=== PATIENT | female | born 1970 | race Caucasian/White ===

== ENCOUNTER 2023-02-03 01:14 | Emergency (ER) | payer OTHER, MEDICAID ==
[~2023-02-03] VITALS: Ht 162.6 cm; Wt 65.0 kg
[2023-02-03 01:24] VITALS: BP 164/95; PULSE 70; RESP 16; TEMP 98.4; O2SAT 98
[2023-02-03] MEDS ORDERED: ASPIRIN 81MG TABLET PO ONE (04:15)
[2023-02-03] MEDS ORDERED: NITROGLYCERIN 0.4MG TABLET SL SL PRN (04:15)
[2023-02-03 04:38] LABS: HEMATOCRIT. 30.7 % (36.0-48.0); HEMOGLOBIN. 9.7 g/dL (12.0-16.0); MEAN CORPUSCULAR HEMOGLOBIN 25.2 pg (28.0-32.0); MEAN CORPUSCULAR HGB CONC 31.5 g/dL (31.0-37.0); MEAN CORPUSCULAR VOLUME 79.8 fL (81.0-99.0); MEAN PLATELET VOLUME 6.9 fl (7.4-10.4); PLATELET 535 x1000/uL (130-400); RED BLOOD CELL COUNT 3.85 mill/uL (4.2-5.4); RED CELL DISTRIBUTION WIDTH 15.9 % (11.6-14.6); WHITE BLOOD COUNT 14.6 x1000/uL (4.5-11.0)
[2023-02-03 04:46] LABS: CHLORIDE 106 mEq/L (98-107); INDEX HEMOLYSI 1 (1-3); INDEX ICTERIC 1 (1-4); INDEX LIPEMIC 1 (1-3); POTASSIUM 4.1 mEq/L (3.5-5.1); SODIUM 138 mEq/L (136-145)
[2023-02-03 04:57] LABS: ALANINE AMINOTRANSFERASE 64 IU/L (13-61); ASPARTATE AMINOTRANSFERASE 45 IU/L (15-37); BILIRUBIN TOTAL 0.4 mg/dL (0.1-1.0); CALCIUM 8.5 mg/dL (8.5-10.1); CARBON DIOXIDE 29 mEq/L (21-32); CREATININE 0.6 mg/dL (0.6-1.3); GLUCOSE 94 mg/dL (70-105); NT PRO B-TYPE NATRIURETIC PEP 7243 pg/mL (5-125); PROTEIN TOTAL 6.9 g/dL (6.0-8.3); UREA NITROGEN BLOOD 22 mg/dL (7-21)
[2023-02-03 05:11] LABS: TROPONIN I HIGH SENSITIVITY 59 ng/L (<54)
[2023-02-03] MEDS ORDERED: SODIUM CHLORIDE 0.9% 1000ML BAG (SEPSIS BOLUS) IV ONE (05:15)
[2023-02-03] MEDS ORDERED: CEFTRIAXONE 1GM PREMIX 50 ML IV ONE (05:15)
[2023-02-03] MEDS ORDERED: AZITHROMYCIN 500MG/250ML 250 ML IV ONE (05:15)
[2023-02-03 05:38] LABS: DIFFERENTIAL COMMENT 1
[2023-02-03 06:51] LABS: TROPONIN I HIGH SENSITIVITY 53 ng/L (<54)
[2023-02-03 07:49] LABS: CLARITY URINE TURBID (CLEAR); COLOR URINE YELLOW (YELLOW); GLUCOSE URINE NEGATIVE (NEGATIVE); KETONES URINE NEGATIVE (NEGATIVE); LEUKOCYTE ESTERASE URINE NEGATIVE (NEGATIVE); NITRITE URINE NEGATIVE (NEGATIVE); OCCULT BLOOD URINE NEGATIVE (NEGATIVE); PH URINE 8.5 (4.5-8.0); PROTEIN URINE TRACE (NEGATIVE); SPECIFIC GRAVITY URINE 1.016 (1.005-1.030)
[2023-02-03 08:37] LABS: AMORPHOUS SEDIMENT URINE 2+ /lpf
[2023-02-03 08:38] LABS: BACTERIA URINE 2+; SQUAMOUS EPITHELIAL CELL URINE NONE SEEN /lpf (RARE/1+)
[2023-02-03 08:39] LABS: RBC URINE NONE SEEN /hpf (0-2); WBC URINE 0-2 /hpf (0-2)
[2023-02-03 08:44] LABS: PLATELET ESTIMATE INCREASED
== END 2023-02-03 07:03 | disposition left against medical advice (07) ==
LOC: ER 01:14 → EDBEDREQ 05:38 → ER 07:03
DX: R07.89 Other chest pain (principal); F12.10 Cannabis abuse, uncomplicated; Z20.822 Contact with and (suspected) exposure to COVID-19
CPT/HCPCS: 99285; 71045; 87426; 80053; 81003; 83880; 83605; 85025; 87040; 87086; 84484; 36415; 93005; J7030; C9803

== ENCOUNTER 2023-05-13 17:39 | Inpatient (IN) | payer OTHER, MEDICAID ==
[~2023-05-13] VITALS: Ht 157.5 cm; Wt 58.5 kg
[2023-05-13 18:00] VITALS: O2SAT 98
[2023-05-13] MEDS ORDERED: KETOROLAC 30MG/ML VIAL IV STA (18:37)
[2023-05-13 20:04] LABS: BASOPHILS % 0.8 % (0.0-2.0); DIFFERENTIAL COMMENT 0; EOSINOPHILS % 0.3 % (0.0-5.0); HEMATOCRIT. 34.3 % (36.0-48.0); HEMOGLOBIN. 10.5 g/dL (12.0-16.0); LYMPHOCYTES % 12.2 % (20.0-50.0); MEAN CORPUSCULAR HEMOGLOBIN 22.3 pg (28.0-32.0); MEAN CORPUSCULAR HGB CONC 30.6 g/dL (31.0-37.0); MEAN CORPUSCULAR VOLUME 72.7 fL (81.0-99.0); MEAN PLATELET VOLUME 7.7 fl (7.4-10.4); MONOCYTES % 8.7 % (2.0-8.0); PLATELET 367 x1000/uL (130-400); RED BLOOD CELL COUNT 4.72 mill/uL (4.2-5.4); RED CELL DISTRIBUTION WIDTH 20.9 % (11.6-14.6); WHITE BLOOD COUNT 11.7 x1000/uL (4.5-11.0)
[2023-05-13 20:16] LABS: HCG SCREEN NEGATIVE; INR 1.4; PROTHROMBIN TIME 15.3 sec (9.6-11.0)
[2023-05-13 20:18] LABS: ALANINE AMINOTRANSFERASE 89 IU/L (10-49); ALBUMIN 3.8 g/dL (3.2-4.8); ASPARTATE AMINOTRANSFERASE 71 IU/L (<34); CALCIUM 8.7 mg/dL (8.7-10.4); CARBON DIOXIDE 16 mEq/L (21-32); CHLORIDE 101 mEq/L (98-107); CREATININE 1.2 mg/dL (0.6-1.0); GLUCOSE 114 mg/dL (70-105); PROTEIN TOTAL 6.7 g/dL (6.0-8.3); SODIUM 130 mEq/L (136-145); UREA NITROGEN BLOOD 34 mg/dL (9-23)
[2023-05-13 20:39] LABS: ETHANOL BLOOD < 10 mg/dL (<10); TROPONIN I HIGH SENSITIVITY 106 ng/L (3.0-34)
[2023-05-13] MEDS: SODIUM CHLORIDE 0.9% 1,000 ML IV ONE (20:55)
[2023-05-13] MEDS: KETOROLAC 30MG/ML VIAL IV NR (20:55)
[2023-05-13] MEDS: ASPIRIN 325MG EC TABLET PO ONE (23:15)
[2023-05-13] MEDS: CEFTRIAXONE 1GM PREMIX 50 ML IV ONE (23:15)
[2023-05-13] MEDS: FUROSEMIDE 20MG/2ML VIAL IVP ONE (23:15)
[2023-05-14] MEDS ORDERED: CLONIDINE 0.1MG TABLET PO PRN ×2 (04:15→11:30)
[2023-05-14 05:45] VITALS: BP 154/116; PULSE 106; RESP 18; TEMP 98.8
[2023-05-14 07:43] LABS: ALANINE AMINOTRANSFERASE 142 IU/L (10-49); ALBUMIN 4.2 g/dL (3.2-4.8); ASPARTATE AMINOTRANSFERASE 121 IU/L (<34); BILIRUBIN DIRECT 0.5 mg/dL (<=3.0); CARBON DIOXIDE 11 mEq/L (21-32); CHLORIDE 101 mEq/L (98-107); CHOLESTEROL 149 mg/dL (<200); CREATININE 1.5 mg/dL (0.6-1.0); GLUCOSE 145 mg/dL (70-105); HDL CHOLESTEROL 34 mg/dL (>65); LDL CHOLESTEROL 106 mg/dL (5-100); POTASSIUM 4.7 mEq/L (3.5-5.1); PROTEIN TOTAL 7.3 g/dL (6.0-8.3); SODIUM 130 mEq/L (136-145); TRIGLYCERIDE 85 mg/dL (0-150); UREA NITROGEN BLOOD 33 mg/dL (9-23)
[2023-05-14 07:46] LABS: TROPONIN I HIGH SENSITIVITY 139 ng/L (3.0-34)
[2023-05-14 08:00] VITALS: BP 119/79; PULSE 80; RESP 18; TEMP 98
[2023-05-14] MEDS: ASPIRIN 81MG TABLET PO SCH (09:00)
[2023-05-14] MEDS: LOSARTAN 50 MG TABLET PO SCH (09:00)
[2023-05-14] MEDS: ENOXAPARIN 40MG/0.4ML SYR SUBCUT SCH (09:00)
[2023-05-14 09:06] LABS: HEPATITIS B SURFACE ANTIGEN NEGATIVE (Negative); HEPATITIS C AB NON REACTIVE (Neg) (Negative)
[2023-05-14] MEDS: FUROSEMIDE 40MG/4ML VIAL IVP SCH ×2 (10:13→16:28)
[2023-05-14] MEDS: ONDANSETRON HCL 4MG/2ML INJ IV PRN (10:14)
[2023-05-14] MEDS: PANTOPRAZOLE SODIUM 40 MG/VIAL IV SCH (10:14)
[2023-05-14] MEDS ORDERED: ONDANSETRON HCL 4MG/2ML INJ IV PRN (11:30)
[2023-05-14] MEDS ORDERED: IPRATROPIUM/ALBUTEROL 0.5-3(2.5)MG/3ML NEB HHN PRN (11:30)
[2023-05-14] MEDS ORDERED: ACETAMINOPHEN 325MG TABLET PO PRN (11:30)
[2023-05-14] MEDS ORDERED: ENOXAPARIN 40MG/0.4ML SYR SUBCUT SCH (11:30)
[2023-05-14 12:00] VITALS: BP 158/116; PULSE 113; RESP 18; TEMP 97.4
[2023-05-14 12:52] LABS: BASOPHILS % 0.2 % (0.0-2.0); DIFFERENTIAL COMMENT 0; HEMATOCRIT. 36.8 % (36.0-48.0); HEMOGLOBIN. 10.8 g/dL (12.0-16.0); LYMPHOCYTES % 7.2 % (20.0-50.0); MEAN CORPUSCULAR HEMOGLOBIN 21.7 pg (28.0-32.0); MEAN CORPUSCULAR HGB CONC 29.3 g/dL (31.0-37.0); MEAN PLATELET VOLUME 7.9 fl (7.4-10.4); MONOCYTES % 7.2 % (2.0-8.0); NEUTROPHILS % 85.4 % (40.0-76.0); PLATELET 345 x1000/uL (130-400); RED BLOOD CELL COUNT 4.98 mill/uL (4.2-5.4); RED CELL DISTRIBUTION WIDTH 21.3 % (11.6-14.6); WHITE BLOOD COUNT 15.5 x1000/uL (4.5-11.0)
[2023-05-14] MEDS ORDERED: SODIUM BICARBONATE 5MEQ SYR 100 MEQ in DEXTROSE 5% WATER 1,000 ML IV SCH (14:15)
[2023-05-14] MEDS: PIPERACILLIN/TAZO 3.375G/50ML 50 ML IV SCH (14:21)
[2023-05-14 15:52] LABS: CLARITY URINE CLEAR (CLEAR); COLOR URINE YELLOW (YELLOW); GLUCOSE URINE NEGATIVE (NEGATIVE); KETONES URINE NEGATIVE (NEGATIVE); LEUKOCYTE ESTERASE URINE NEGATIVE (NEGATIVE); NITRITE URINE NEGATIVE (NEGATIVE); OCCULT BLOOD URINE 1+ (NEGATIVE); PROTEIN URINE TRACE (NEGATIVE); SPECIFIC GRAVITY URINE 1.008 (1.005-1.030)
[2023-05-14 16:00] VITALS: BP 144/105; PULSE 109; RESP 22; TEMP 98
[2023-05-14] MEDS: SODIUM BICARBONATE 100 MEQ in DEXTROSE 5% WATER 1,000 ML IV SCH (16:04)
[2023-05-14] MEDS: ENOXAPARIN 60MG/0.6ML SYR SUBCUT SCH (16:04)
[2023-05-14 16:17] LABS: *AMPHETAMINES SCREEN URINE NEGATIVE (NEGATIVE); *BARBITURATES SCREEN URINE NEGATIVE (NEGATIVE); *BENZODIAZEPINES SCREEN URINE NEGATIVE (NEGATIVE); *COCAINE SCREEN URINE NEGATIVE (NEGATIVE); CANNABINOID URINE SCREEN NEGATIVE (NEGATIVE); ECSTASY MDMA SCREEN URINE NEGATIVE (NEGATIVE); METHADONE URINE SCREEN Neg (NEGATIVE); OPIATES URINE SCREEN NEGATIVE (NEGATIVE); PHENCYCLIDINE URINE SCREEN NEGATIVE (NEGATIVE)
[2023-05-14 16:19] LABS: BACTERIA URINE 1+; SQUAMOUS EPITHELIAL CELL URINE FEW /lpf (RARE/1+); WBC URINE 0-2 /hpf (0-2)
[2023-05-14 20:00] VITALS: BP 135/89; PULSE 105; RESP 19; TEMP 98.4
[2023-05-14 22:20] LABS: CREATINE KINASE 509 IU/L (34-145); CREATINE KINASE MB FRACTION 47.1 ng/mL (0.5-3.6); IRON 16 ug/dL (50-170); TOTAL IRON BINDING CAPACITY 317 ug/dl (250-425)
[2023-05-14 22:24] LABS: TROPONIN I HIGH SENSITIVITY 118 ng/L (3.0-34)
[2023-05-14 23:57] LABS: HEPATITIS A AB IGM NEGATIVE (Negative); HEPATITIS B CORE AB IGM NEGATIVE (Negative); HEPATITIS B SURFACE ANTIGEN NEGATIVE (Negative); HEPATITIS C AB NON REACTIVE (Neg) (Negative)
[2023-05-15] VITALS: BP 128/94; PULSE 105; RESP 18; TEMP 97.7
[2023-05-15 04:00] VITALS: BP 125/89; PULSE 102; RESP 18; TEMP 97.8
[2023-05-15 07:39] LABS: BASOPHILS % 0.7 % (0.0-2.0); DIFFERENTIAL COMMENT 0; EOSINOPHILS % 1.1 % (0.0-5.0); HEMATOCRIT. 31.1 % (36.0-48.0); HEMOGLOBIN. 9.7 g/dL (12.0-16.0); LYMPHOCYTES % 10.4 % (20.0-50.0); MEAN CORPUSCULAR HEMOGLOBIN 22.4 pg (28.0-32.0); MEAN CORPUSCULAR HGB CONC 31.3 g/dL (31.0-37.0); MEAN CORPUSCULAR VOLUME 71.6 fL (81.0-99.0); MEAN PLATELET VOLUME 7.9 fl (7.4-10.4); MONOCYTES % 9.7 % (2.0-8.0); NEUTROPHILS % 78.1 % (40.0-76.0); PLATELET 300 x1000/uL (130-400); RED BLOOD CELL COUNT 4.35 mill/uL (4.2-5.4); RED CELL DISTRIBUTION WIDTH 20.5 % (11.6-14.6)
[2023-05-15 08:00] VITALS: BP 139/85; PULSE 73; RESP 20; TEMP 97.3
[2023-05-15 08:10] LABS: CALCIUM 7.9 mg/dL (8.7-10.4); CARBON DIOXIDE 25 mEq/L (21-32); CHLORIDE 99 mEq/L (98-107); CREATININE 1.2 mg/dL (0.6-1.0); GLUCOSE 90 mg/dL (70-105); POTASSIUM 3.2 mEq/L (3.5-5.1); SODIUM 133 mEq/L (136-145); UREA NITROGEN BLOOD 39 mg/dL (9-23)
[2023-05-15 08:18] LABS: TROPONIN I HIGH SENSITIVITY 123 ng/L (3.0-34)
[2023-05-15] MEDS: LOSARTAN 25 MG TABLET PO SCH (09:12)
[2023-05-15 12:00] VITALS: BP 109/80; PULSE 72; RESP 18; TEMP 97
[2023-05-15] MEDS: MAGNESIUM 2 G PREMIX 50 ML IV NR (12:24)
[2023-05-15] MEDS: POTASSIUM CHLORIDE 20MEQ TABLET SR PO NR (12:24)
[2023-05-15] MEDS: MAGNESIUM OXIDE 400MG TABLET PO SCH (12:59)
[2023-05-15 16:00] VITALS: BP 108/73; PULSE 89; RESP 18; TEMP 97.2
[2023-05-15 19:43] LABS: ALANINE AMINOTRANSFERASE 589 IU/L (10-49); ALBUMIN 3.4 g/dL (3.2-4.8); ASPARTATE AMINOTRANSFERASE 519 IU/L (<34); BILIRUBIN DIRECT 0.4 mg/dL (<=3.0); BILIRUBIN TOTAL 0.6 mg/dL (0.1-1.0); PROTEIN TOTAL 5.8 g/dL (6.0-8.3)
[2023-05-15 20:00] VITALS: BP 88/50; PULSE 86; RESP 18; TEMP 97.9
[2023-05-15] MEDS ORDERED: CARV3.1242 PO (20:56)
[2023-05-15] MEDS ORDERED: SPIR25TA6 PO (20:56)
[2023-05-15] MEDS ORDERED: BUPR-46 PO (20:56)
[2023-05-15] MEDS ORDERED: SACU1TAB PO (20:56)
[2023-05-15] MEDS ORDERED: POTA-203 PO (20:56)
[2023-05-15] MEDS ORDERED: FURO40TA5 PO (20:56)
[2023-05-15] MEDS ORDERED: ACYC200C31 PO (20:59)
[2023-05-15] MEDS ORDERED: AMLO5TAB88 PO (21:02)
[2023-05-15] MEDS ORDERED: RIVA20TA PO (21:02)
[2023-05-15] MEDS ORDERED: POTA-185 PO (21:02)
[2023-05-15] MEDS ORDERED: VENL37.586 PO (21:02)
[2023-05-15] MEDS ORDERED: SODIUM CHLORIDE 0.9% 500 ML IV NR ×2 (21:15→22:15)
[2023-05-16] VITALS: BP 95/61; PULSE 83; RESP 18; TEMP 98
[2023-05-16 04:00] VITALS: BP 101/67; PULSE 89; RESP 18; TEMP 97.6
[2023-05-16 06:29] LABS: HEMATOCRIT. 33.1 % (36.0-48.0); HEMOGLOBIN. 10.1 g/dL (12.0-16.0); MEAN CORPUSCULAR HEMOGLOBIN 21.8 pg (28.0-32.0); MEAN CORPUSCULAR HGB CONC 30.6 g/dL (31.0-37.0); MEAN CORPUSCULAR VOLUME 71.3 fL (81.0-99.0); PLATELET 317 x1000/uL (130-400); RED BLOOD CELL COUNT 4.65 mill/uL (4.2-5.4); RED CELL DISTRIBUTION WIDTH 20.7 % (11.6-14.6); WHITE BLOOD COUNT 11.2 x1000/uL (4.5-11.0)
[2023-05-16 06:43] LABS: DIFFERENTIAL COMMENT 1
[2023-05-16 06:59] LABS: CALCIUM 7.9 mg/dL (8.7-10.4); POTASSIUM 3.8 mEq/L (3.5-5.1)
[2023-05-16 08:00] VITALS: BP 128/83; PULSE 88; RESP 20; TEMP 97.4
[2023-05-16] MEDS: FAMOTIDINE 20MG TABLET PO SCH (09:40)
[2023-05-16] MEDS: POTASSIUM CHLORIDE 20MEQ TABLET SR PO SCH (09:41)
[2023-05-16 12:00] VITALS: BP 131/84; PULSE 84; RESP 20; TEMP 97.5
[2023-05-16 15:28] LABS: NUCLEATED RED BLOOD CELLS 3 /100 WBC; PLATELET ESTIMATE NORMAL
[2023-05-16 15:29] LABS: ANISOCYTOSIS 1+
[2023-05-16 16:00] VITALS: BP 109/82; PULSE 91; RESP 20; TEMP 97.4
[2023-05-16] MEDS: RIVAROXABAN 20 MG TABLET PO SCH (17:40)
[2023-05-16 20:00] VITALS: BP 115/63; PULSE 92; RESP 18; TEMP 98.1
[2023-05-17] VITALS: BP 102/53; PULSE 93; RESP 18; TEMP 97.9
[2023-05-17 04:00] VITALS: BP 105/67; PULSE 93; RESP 19; TEMP 98.2
[2023-05-17 06:21] LABS: HEMATOCRIT. 30.6 % (36.0-48.0); HEMOGLOBIN. 9.4 g/dL (12.0-16.0); MEAN CORPUSCULAR HEMOGLOBIN 22.1 pg (28.0-32.0); MEAN CORPUSCULAR HGB CONC 30.6 g/dL (31.0-37.0); MEAN CORPUSCULAR VOLUME 72.1 fL (81.0-99.0); MEAN PLATELET VOLUME 8.1 fl (7.4-10.4); PLATELET 303 x1000/uL (130-400); RED BLOOD CELL COUNT 4.25 mill/uL (4.2-5.4); RED CELL DISTRIBUTION WIDTH 20.8 % (11.6-14.6); WHITE BLOOD COUNT 8.5 x1000/uL (4.5-11.0)
[2023-05-17 06:25] LABS: DIFFERENTIAL COMMENT 1
[2023-05-17 06:52] LABS: CALCIUM 8.6 mg/dL (8.7-10.4); CARBON DIOXIDE 32 mEq/L (21-32); CHLORIDE 98 mEq/L (98-107); CREATININE 0.9 mg/dL (0.6-1.0); GLUCOSE 72 mg/dL (70-105); POTASSIUM 4.5 mEq/L (3.5-5.1); SODIUM 136 mEq/L (136-145); UREA NITROGEN BLOOD 40 mg/dL (9-23)
[2023-05-17 08:00] VITALS: BP 158/89; PULSE 90; RESP 18; TEMP 98.1
[2023-05-17 14:55] LABS: ANISOCYTOSIS 2+; HYPOCHROMASIA 1+; MICROCYTOSIS 2+; NUCLEATED RED BLOOD CELLS 1 /100 WBC; PLATELET ESTIMATE NORMAL
[2023-05-17 16:00] VITALS: BP 129/88; PULSE 88; RESP 18; TEMP 98
[2023-05-17 16:48] LABS: ALANINE AMINOTRANSFERASE 388 IU/L (10-49); ALBUMIN 3.5 g/dL (3.2-4.8); ASPARTATE AMINOTRANSFERASE 168 IU/L (<34); BILIRUBIN DIRECT 0.2 mg/dL (<=3.0); BILIRUBIN TOTAL 0.4 mg/dL (0.1-1.0); PROTEIN TOTAL 5.8 g/dL (6.0-8.3)
[2023-05-17 20:00] VITALS: BP 109/56; PULSE 92; RESP 18; TEMP 97.4
[2023-05-18 04:00] VITALS: BP 128/77; PULSE 94; RESP 19; TEMP 97.9
[2023-05-18 07:39] LABS: CALCIUM 8.6 mg/dL (8.7-10.4); POTASSIUM 4.1 mEq/L (3.5-5.1)
[2023-05-18 08:00] LABS: BASOPHILS % 1.1 % (0.0-2.0); DIFFERENTIAL COMMENT 0; EOSINOPHILS % 3.2 % (0.0-5.0); HEMATOCRIT. 34.7 % (36.0-48.0); HEMOGLOBIN. 10.7 g/dL (12.0-16.0); LYMPHOCYTES % 14.8 % (20.0-50.0); MEAN CORPUSCULAR HEMOGLOBIN 22.1 pg (28.0-32.0); MEAN CORPUSCULAR HGB CONC 30.7 g/dL (31.0-37.0); MEAN PLATELET VOLUME 7.7 fl (7.4-10.4); MONOCYTES % 14.9 % (2.0-8.0); PLATELET 359 x1000/uL (130-400); RED BLOOD CELL COUNT 4.81 mill/uL (4.2-5.4); RED CELL DISTRIBUTION WIDTH 20.9 % (11.6-14.6); WHITE BLOOD COUNT 10.1 x1000/uL (4.5-11.0)
[2023-05-18 08:46] VITALS: BP 116/82; PULSE 95; RESP 20; TEMP 98.5
[2023-05-19] MEDS ORDERED: ARIPIPRAZOLE 5MG TABLET PO SCH (09:00)
== END 2023-05-18 09:48 | disposition left against medical advice (07) | DRG 682 ==
LOC: ER 17:39 → 7WST 23:04 → 6WST 05-17 13:11
PROVIDERS: ADMIT Internal Medicine; ATTEND Internal Medicine
DX: N17.9 Acute kidney failure, unspecified (principal); I50.23 Acute on chronic systolic (congestive) heart failure; I13.0 Hypertensive heart and chronic kidney disease with heart failure and stage 1 through stage 4 chronic kidney disease, or unspecified chronic kidney disease; E46 Unspecified protein-calorie malnutrition; E87.20 Acidosis, unspecified; K82.8 Other specified diseases of gallbladder; D64.9 Anemia, unspecified; N18.9 Chronic kidney disease, unspecified; D72.829 Elevated white blood cell count, unspecified; Z53.29 Procedure and treatment not carried out because of patient's decision for other reasons; E83.42 Hypomagnesemia; E86.0 Dehydration; E87.5 Hyperkalemia; F41.9 Anxiety disorder, unspecified; Z79.01 Long term (current) use of anticoagulants; Z79.899 Other long term (current) drug therapy; Z68.23 Body mass index [BMI] 23.0-23.9, adult; I51.3 Intracardiac thrombosis, not elsewhere classified
CPT/HCPCS: 36415; 71045; 74176; 76705; 80048; 80053; 80061; 80076; 80305; 80320; 81003; 82550; 82553; 82728; 83540; 83550; 83735; 83880; 84484; 84703; 85025; 86705; 86709; 87340; 93005; 93306; 97162; 99285; C9113; J0696; J1650; J1885; J1940; J2405; J2543; J3475; J3490; J7030; J7070; G0480

== ENCOUNTER 2023-06-17 17:06 | Emergency (ER) | payer OTHER, MEDICAID ==
[~2023-06-17] VITALS: Ht 160 cm; Wt 66.8 kg
[~2023-06-17 17:06] MED LIST: ACYC200C31 PO; AMLO5TAB88 PO; BUPR-46 PO; CARV3.1242 PO; FURO40TA5 PO; POTA-185 PO; POTA-203 PO; RIVA20TA PO; SACU1TAB PO; SPIR25TA6 PO; VENL37.586 PO
[2023-06-17 17:10] VITALS: O2SAT 100
[2023-06-17] MEDS ORDERED: DICYCLOMINE 10 MG/5 ML ORAL SYR PO STA (17:29)
[2023-06-17 18:14] LABS: BASOPHILS % 1.2 % (0.0-2.0); DIFFERENTIAL COMMENT 0; EOSINOPHILS % 1.3 % (0.0-5.0); HEMATOCRIT. 31.4 % (36.0-48.0); HEMOGLOBIN. 9.5 g/dL (12.0-16.0); LYMPHOCYTES % 12.9 % (20.0-50.0); MEAN CORPUSCULAR HEMOGLOBIN 21.6 pg (28.0-32.0); MEAN CORPUSCULAR HGB CONC 30.3 g/dL (31.0-37.0); MEAN CORPUSCULAR VOLUME 71.3 fL (81.0-99.0); MEAN PLATELET VOLUME 7.5 fl (7.4-10.4); MONOCYTES % 10.2 % (2.0-8.0); NEUTROPHILS % 74.4 % (40.0-76.0); PLATELET 411 x1000/uL (130-400); RED BLOOD CELL COUNT 4.41 mill/uL (4.2-5.4); RED CELL DISTRIBUTION WIDTH 20.3 % (11.6-14.6); WHITE BLOOD COUNT 8.3 x1000/uL (4.5-11.0)
[2023-06-17 18:24] LABS: INR 1.1; PROTHROMBIN TIME 11.9 sec (9.6-11.0)
[2023-06-17 18:28] LABS: ALANINE AMINOTRANSFERASE 59 IU/L (10-49); ASPARTATE AMINOTRANSFERASE 58 IU/L (<34); BILIRUBIN TOTAL 0.6 mg/dL (0.1-1.0); CALCIUM 8.8 mg/dL (8.7-10.4); CARBON DIOXIDE 28 mEq/L (21-32); CHLORIDE 101 mEq/L (98-107); CREATININE 0.9 mg/dL (0.6-1.0); GLUCOSE 85 mg/dL (70-105); POTASSIUM 4.8 mEq/L (3.5-5.1); PROTEIN TOTAL 7.1 g/dL (6.0-8.3); SODIUM 134 mEq/L (136-145); UREA NITROGEN BLOOD 29 mg/dL (9-23)
[2023-06-17 18:30] LABS: ETHANOL BLOOD < 10 mg/dL (<10); TROPONIN I HIGH SENSITIVITY 431 ng/L (3.0-34)
[2023-06-17 19:53] LABS: TROPONIN I HIGH SENSITIVITY 402 ng/L (3.0-34)
[2023-06-17] MEDS: MAGNESIUM/ALUMINUM HYDROXIDE/SIMETHICONE 30ML UDC PO NR (19:59)
[2023-06-17] MEDS: ONDANSETRON 4MG ODT PO NR (19:59)
[2023-06-17] MEDS: ONDANSETRON 4MG ODT PO STA (20:02)
[2023-06-17] MEDS: MAGNESIUM/ALUMINUM HYDROXIDE/SIMETHICONE 30ML UDC PO STA (20:02)
[2023-06-17] MEDS: DICYCLOMINE HCL 10MG CAPSULE PO NR (20:03)
[2023-06-17] MEDS: ASPIRIN 325MG TABLET PO NR (21:05)
[2023-06-17 21:33] LABS: INR 1.1; PROTHROMBIN TIME 12.4 sec (9.6-11.0)
[2023-06-17] MEDS: HEPARIN 5000 UNITS/ML VIAL IV NR (22:38)
[2023-06-17] MEDS: HEPARIN 25,000 UNITS PREMIX 250 ML IV PRN (22:51)
[2023-06-18 02:03] VITALS: BP 133/80; PULSE 91; RESP 15; TEMP 97.8
[2023-06-18] MEDS ORDERED: HEPARIN 5000 UNITS/ML VIAL IV PRN ×2 (06:00)
== END 2023-06-18 03:58 | disposition admitted as inpatient to this hospital (09) ==
LOC: ER 17:06 → CANBEDREQ 06-18 09:52
DX: I21.4 Non-ST elevation (NSTEMI) myocardial infarction (principal); F41.9 Anxiety disorder, unspecified; I10 Essential (primary) hypertension; F17.200 Nicotine dependence, unspecified, uncomplicated; F12.90 Cannabis use, unspecified, uncomplicated; F43.10 Post-traumatic stress disorder, unspecified; Z90.710 Acquired absence of both cervix and uterus; Z98.890 Other specified postprocedural states
CPT/HCPCS: 80053; 80320; 85025; 85610; 85730; 84484; 36415; 74176; 96365; 96375; 99291; Q0162; J1644; G0480

== ENCOUNTER 2023-06-22 05:45 | Emergency (ER) | payer OTHER, MEDICAID ==
[~2023-06-22] VITALS: Ht 157.5 cm; Wt 73.0 kg
[2023-06-22 05:51] VITALS: O2SAT 97
[2023-06-22 06:49] LABS: BASOPHILS % 0.8 % (0.0-2.0); DIFFERENTIAL COMMENT 0; EOSINOPHILS % 0.3 % (0.0-5.0); HEMATOCRIT. 37.8 % (36.0-48.0); HEMOGLOBIN. 11.4 g/dL (12.0-16.0); LYMPHOCYTES % 11.5 % (20.0-50.0); MEAN CORPUSCULAR HEMOGLOBIN 21.4 pg (28.0-32.0); MEAN CORPUSCULAR HGB CONC 30.1 g/dL (31.0-37.0); MEAN PLATELET VOLUME 7.8 fl (7.4-10.4); MONOCYTES % 10.7 % (2.0-8.0); NEUTROPHILS % 76.7 % (40.0-76.0); PLATELET 703 x1000/uL (130-400); RED BLOOD CELL COUNT 5.32 mill/uL (4.2-5.4); RED CELL DISTRIBUTION WIDTH 20.5 % (11.6-14.6); WHITE BLOOD COUNT 12.8 x1000/uL (4.5-11.0)
[2023-06-22 06:58] LABS: HCG SCREEN NEGATIVE
[2023-06-22 07:02] LABS: ALANINE AMINOTRANSFERASE 71 IU/L (10-49); ALBUMIN 4.7 g/dL (3.2-4.8); ASPARTATE AMINOTRANSFERASE 75 IU/L (<34); BILIRUBIN TOTAL 1.6 mg/dL (0.1-1.0); CALCIUM 8.7 mg/dL (8.7-10.4); CARBON DIOXIDE 24 mEq/L (21-32); CHLORIDE 90 mEq/L (98-107); CREATININE 1.1 mg/dL (0.6-1.0); GLUCOSE 90 mg/dL (70-105); POTASSIUM 4.5 mEq/L (3.5-5.1); PROTEIN TOTAL 7.8 g/dL (6.0-8.3); SODIUM 128 mEq/L (136-145); UREA NITROGEN BLOOD 40 mg/dL (9-23)
[2023-06-22 07:07] LABS: TROPONIN I HIGH SENSITIVITY 572 ng/L (3.0-34)
[2023-06-22] MEDS: FUROSEMIDE 40MG/4ML VIAL IVP ONE (09:14)
[2023-06-22] MEDS: NITROGLYCERIN 0.4MG TABLET SL SL ONE (09:14)
[2023-06-22 10:39] LABS: CLARITY URINE CLEAR (CLEAR); COLOR URINE YELLOW (YELLOW); GLUCOSE URINE NEGATIVE (NEGATIVE); KETONES URINE NEGATIVE (NEGATIVE); LEUKOCYTE ESTERASE URINE NEGATIVE (NEGATIVE); NITRITE URINE NEGATIVE (NEGATIVE); OCCULT BLOOD URINE NEGATIVE (NEGATIVE); PH URINE 6.5 (4.5-8.0); PROTEIN URINE TRACE (NEGATIVE); SPECIFIC GRAVITY URINE 1.011 (1.005-1.030)
[2023-06-22 10:40] LABS: TROPONIN I HIGH SENSITIVITY 334 ng/L (3.0-34)
[2023-06-22 10:46] VITALS: BP 145/108; PULSE 96; RESP 20; TEMP 98.6
[2023-06-22 11:06] LABS: SQUAMOUS EPITHELIAL CELL URINE FEW /lpf (RARE/1+)
[2023-06-22 11:09] LABS: BACTERIA URINE NONE SEEN; RBC URINE 0-2 /hpf (0-2); WBC URINE 0-2 /hpf (0-2)
== END 2023-06-22 11:35 | disposition left against medical advice (07) ==
LOC: ER 06:42 → EDBEDREQ 11:22 → EDBEDREQTM 11:22 → ER 11:35 → CANBEDREQ 06-23 20:02
DX: I11.0 Hypertensive heart disease with heart failure (principal); I50.9 Heart failure, unspecified; F12.10 Cannabis abuse, uncomplicated; Z91.148 Patient's other noncompliance with medication regimen for other reason; Z79.899 Other long term (current) drug therapy
CPT/HCPCS: 99285; 96374; 71045; 80053; 81003; 84703; 83880; 85025; 84484; 36415; 93005; J1940

== ENCOUNTER → 2024-07-19 | Emergency (ER) | payer MEDICARE, MEDICAID ==
[~2024-07-19] VITALS: Ht 160 cm; Wt 59.0 kg
[2024-07-19 03:38] VITALS: BP 140/79; PULSE 73; RESP 16; TEMP 36.8; O2SAT 98
[2024-07-19] MEDS: DIPHENHYDRAMINE 25MG CAPSULE PO ONE (05:20)
== END | disposition home or self-care (01) ==
LOC: ER 03:46
DX: R53.82 Chronic fatigue, unspecified (principal); J44.9 Chronic obstructive pulmonary disease, unspecified; I50.9 Heart failure, unspecified; F41.9 Anxiety disorder, unspecified; F20.9 Schizophrenia, unspecified; Z79.899 Other long term (current) drug therapy; Z79.624 Long term (current) use of inhibitors of nucleotide synthesis; Z79.01 Long term (current) use of anticoagulants
CPT/HCPCS: 99281

== ENCOUNTER 2024-08-14 16:25 | Emergency (ER) | payer OTHER, MEDICAID ==
[~2024-08-14] VITALS: Ht 165.1 cm; Wt 55.0 kg
[2024-08-14 16:35] VITALS: BP 109/56; PULSE 86; RESP 18; TEMP 36.8; O2SAT 99
[2024-08-14 17:57] LABS: BASOPHILS % 0.5 % (0.0-2.0); EOSINOPHILS % 2.9 % (0.0-5.0); HEMATOCRIT. 33.8 % (36.0-48.0); HEMOGLOBIN. 11.3 g/dL (12.0-16.0); LYMPHOCYTES % 18.1 % (20.0-50.0); MEAN CORPUSCULAR HEMOGLOBIN 28.8 pg (28.0-32.0); MEAN CORPUSCULAR HGB CONC 33.5 g/dL (31.0-37.0); MEAN PLATELET VOLUME 8.3 fl (7.4-10.4); MONOCYTES % 10.9 % (2.0-8.0); NEUTROPHILS % 67.6 % (40.0-76.0); PLATELET 296 x1000/uL (130-400); RED BLOOD CELL COUNT 3.93 mill/uL (4.2-5.4); RED CELL DISTRIBUTION WIDTH 14.1 % (11.6-14.6); WHITE BLOOD COUNT 6.2 x1000/uL (4.5-11.0)
[2024-08-14 18:03] LABS: CHLORIDE 102 mEq/L (98-107); POTASSIUM 3.9 mEq/L (3.5-5.1); SODIUM 137 mEq/L (136-145)
[2024-08-14 18:04] LABS: CARBON DIOXIDE 29 mEq/L (21-32)
[2024-08-14 18:09] LABS: CREATININE 0.9 mg/dL (0.6-1.0); GLUCOSE 110 mg/dL (70-105)
[2024-08-14 18:10] LABS: ETHANOL BLOOD < 10 mg/dL (<10); TROPONIN I HIGH SENSITIVITY 8 ng/L (3.0-34); UREA NITROGEN BLOOD 14 mg/dL (9-23)
[2024-08-14 18:11] LABS: ACETAMINOPHEN < 2 ug/mL (10-30)
[2024-08-14 19:00] LABS: TROPONIN I HIGH SENSITIVITY 9 ng/L (3.0-34)
== END 2024-08-14 21:36 | disposition home or self-care (01) ==
LOC: ER 16:25
DX: R07.89 Other chest pain (principal); F31.9 Bipolar disorder, unspecified; F41.9 Anxiety disorder, unspecified; I50.9 Heart failure, unspecified; J44.9 Chronic obstructive pulmonary disease, unspecified; Z59.00 Homelessness unspecified; Z79.899 Other long term (current) drug therapy; Z86.59 Personal history of other mental and behavioral disorders
CPT/HCPCS: 36415; 71045; 80048; 80307; 80320; 80329; 84484; 85025; 93005; 99285; G0480

== ENCOUNTER 2024-12-11 23:08 | Emergency (ER) | payer MEDICARE, MEDICAID ==
[~2024-12-11] VITALS: Ht 167.6 cm; Wt 69.0 kg
[~2024-12-11 23:08] MED LIST changes: -ACYC200C31 PO; -AMLO5TAB88 PO; -BUPR-46 PO; -CARV3.1242 PO; +EMPA10TA PO; +FURO20TA4 PO; -FURO40TA5 PO; +METO-396 PO; -POTA-185 PO; -POTA-203 PO; +RISP-29 PO; -VENL37.586 PO; +VENL75CA56 PO
[2024-12-11 23:21] VITALS: O2SAT 96
[2024-12-12] MEDS: VISCOUS LIDOCAINE 2% 15 ML UDC MM STA (00:02)
[2024-12-12 00:03] VITALS: BP 139/87; PULSE 98; RESP 16; TEMP 36.9; O2SAT 99
== END 2024-12-12 00:05 | disposition home or self-care (01) ==
LOC: ER 23:08
DX: R09.89 Other specified symptoms and signs involving the circulatory and respiratory systems (principal); E11.9 Type 2 diabetes mellitus without complications; I10 Essential (primary) hypertension; J44.9 Chronic obstructive pulmonary disease, unspecified; I50.9 Heart failure, unspecified; I11.0 Hypertensive heart disease with heart failure; F41.9 Anxiety disorder, unspecified; Z79.899 Other long term (current) drug therapy
CPT/HCPCS: 99281; 99283